=== PATIENT | male | born 1955 | race Caucasian/White ===

== ENCOUNTER 2022-02-13 06:00 | Day surgery (SDC) | payer MEDICARE, OTHER ==
[~2022-02-13] VITALS: Ht 170.2 cm; Wt 90.3 kg
[~2022-02-13 06:00] MED LIST: AMLO5; CATAPRES0.1 MG PO; CIPR500; HYDACE5; LISI20 PO; METO25ER PO; METR500 PO; OXYACE5T PO; PROM25 PO; TERA5 PO
--- NOTE | 2022-02-13 07:13 | NUR ---
PT AMBULATES TO [facility] C SLOW LIMPED GAIT. REPORTS NPO SINCE MIDNIGHT. History, Chart, Medications and Allergies reviewed before start of procedure. Lungs clear T/O to Auscultation. Surgical site prepped with 2% Chlorhexidine cloth wipe. GLASSES C SON.
[2022-02-13] MEDS ORDERED: LEVSOD25 PO (11:46)
--- NOTE | 2022-02-13 17:16 | NUR ---
SHIFT SUMMARY PT A&OX4, VSS/RA, CIRO PO, VOIDING WELL, AMB SBA W/FWW & GB, UP TO CHAIR, PAIN MANAGED WITH TYLENOL, TORADOL AND 5 MG OXY. WILL REPORT TO ONCOMING NOC RN.
[2022-02-14 06:04] LABS: BASOPHILS ABSOLUTE AUTO 0.05 K/mm3 (0.00-0.23); BASOPHILS PERCENT AUTO 0 % (0-2); EOSINOPHILS ABSOLUTE AUTO 0.13 K/mm3 (0.00-0.68); EOSINOPHILS PERCENT AUTO 1 % (0-6); Hematocrit 36.8 % (37.0-53.0); Hemoglobin 12.7 g/dL (13.5-17.5); IMMATURE GRAN ABSOLUTE AUTO 0.04 K/mm3 (0.00-0.10); IMMATURE GRAN PERCENT AUTO 0 % (0-1); LYMPHOCYTES ABSOLUTE AUTO 2.44 K/mm3 (0.84-5.20); LYMPHOCYTES PERCENT AUTO 21 % (21-46); MONOCYTES PERCENT AUTO 14 % (4-13); Mean Corpuscular HGB 31.8 pg (26.0-34.0); Mean Corpuscular HGB Conc 34.5 g/dL (31.5-36.5); Mean Corpuscular Volume 92 fL (80-100); Mean Platelet Volume 10.1 fL (9.1-12.4); NEUTROPHILS ABSOLUTE AUTO 7.52 K/mm3 (1.96-9.15); NEUTROPHILS PERCENT AUTO 64 % (41-73); Platelet Count 209 K/mm3 (150-400); RDW Coefficient Variation 12.9 % (11.7-14.2); White Blood Cell Count 11.78 K/mm3 (4.00-11.30)
[2022-02-14 06:38] LABS: Bun/Creatinine Ratio 22.1 (12.0-20.0); Calcium, Blood 9.1 mg/dL (8.5-10.1); Creatinine, Blood 1.63 mg/dL (0.60-1.20); Magnesium, Blood 2.1 mg/dL (1.6-2.4); Potassium, Blood 3.8 mmol/L (3.5-5.5)
--- NOTE | 2022-02-14 07:16 | NUR ---
ASSUMED CARE OF PT AT 1900 HRS. NO ACUTE CHANGES THIS SHIFT. PT IS A&OX4, IS A SBA TO BR WITH FWW AND CALLS APPROPRIATELY. 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 PAIN IS WELL CONTROLLED WITH SCHEDULED TORADOL AND TYLENOL. TOLERATING DIET. PT UP IN CHAIR, CALL LIGHT WITHIN REACH. REPORT GIVEN TO GERBER GIANG.
--- NOTE | 2022-02-14 11:00 | NUR ---
SHIFT SUMMARY PT A&OX4, VSS/RA, VOIDING, CIRO PO, PAIN MANAGED, AMB W/FWW, IV DC'D. DC INS PROVIDED. PT LEFT FLOOR VIA WC WITH [employer] DC PACKET, TO GO HOME WITH SON.
== END 2022-02-14 10:54 | disposition home or self-care (01) ==
LOC: ORSCMMR 06:00 → ORD 07:30 → SURS 10:17 → ORSCMMR 02-14 10:54
PROVIDERS: Orthopaedic Surgery
PROC: 8E0YXBZ Computer Assisted Procedure of Lower Extremity (ICD-10-PCS; principal; 2022-02-13 07:30)
PROC: 0SRB0JA Replacement of Left Hip Joint with Synthetic Substitute, Uncemented, Open Approach (ICD-10-PCS; principal; 2022-02-13 07:30)
DX: M16.12 Unilateral primary osteoarthritis, left hip (principal); E03.9 Hypothyroidism, unspecified; I10 Essential (primary) hypertension; E78.5 Hyperlipidemia, unspecified; Z79.82 Long term (current) use of aspirin; Z79.899 Other long term (current) drug therapy
CPT/HCPCS: 36415; 72170; 80048; 83735; 85025; 97110; 97116; 97162; 97165; 97530; 97535; A9270; C1713; C1776; J0171; J0690; J0735; J1100; J1885; J2250; J2370; J2405; J2704; J2795; J3010; J7120